=== PATIENT | female | born 1955 | race Hispanic/Latino ===

== ENCOUNTER 2024-04-22 07:57 | Outpatient (CLI) | payer OTHER | END 2024-04-22 07:58 | disposition home or self-care (01) | LOC: CSHULT 07:57 | PROVIDERS: ATTEND Urology | DX: N20.0 Calculus of kidney (principal); N28.1 Cyst of kidney, acquired | CPT/HCPCS: 76770 ==

== ENCOUNTER 2025-01-11 07:38 | Outpatient (CLI) | payer OTHER | END 2025-01-11 07:39 | disposition home or self-care (01) | LOC: CSHMAMMO 07:38 | PROVIDERS: ATTEND Student in an Organized Health Care Education/Training Program | DX: M81.0 Age-related osteoporosis without current pathological fracture (principal); M85.89 Other specified disorders of bone density and structure, multiple sites | CPT/HCPCS: 77080 ==

== ENCOUNTER 2025-01-13 15:11 | Outpatient (CLI) | payer OTHER | END 2025-01-13 15:12 | disposition home or self-care (01) | LOC: CSHRAD 15:11 | PROVIDERS: ATTEND Internal Medicine Rheumatology | DX: M05.69 Rheumatoid arthritis of multiple sites with involvement of other organs and systems (principal); M19.032 Primary osteoarthritis, left wrist; M19.042 Primary osteoarthritis, left hand; M19.041 Primary osteoarthritis, right hand; M79.89 Other specified soft tissue disorders | CPT/HCPCS: 73565 ==